=== PATIENT | female | born 1995 | race Two or more races ===

== ENCOUNTER 2025-03-23 13:49 | Emergency (ER) | payer BC ==
[~2025-03-23] VITALS: Ht 165.1 cm; Wt 50.0 kg
[2025-03-23 13:59] VITALS: O2SAT 100
[2025-03-23] MEDS: TETANUS, DIPHTHERIA, PERTUSSIS VAC/PF 0.5ML (>10YR OLD) IM ONE (14:33)
[2025-03-23] MEDS: ACETAMINOPHEN 325MG TABLET PO ONE (14:33)
[2025-03-23 16:47] LABS: HCG SCREEN NEGATIVE
[2025-03-23] MEDS ORDERED: LIDOCAINE HCL/EPINEPHRINE 1%-EPI 1:100,000 20ML VIAL INFIL ONE (17:30)
[2025-03-23 18:10] VITALS: BP 114/72; PULSE 81; RESP 18; TEMP 36.7; O2SAT 100
== END 2025-03-23 18:48 | disposition home or self-care (01) ==
LOC: ER 13:49
DX: S01.81XA Laceration without foreign body of other part of head, initial encounter (principal); E03.9 Hypothyroidism, unspecified; Z98.890 Other specified postprocedural states; Z88.2 Allergy status to sulfonamides; Z88.0 Allergy status to penicillin; W01.0XXA Fall on same level from slipping, tripping and stumbling without subsequent striking against object, initial encounter; Y93.89 Activity, other specified; Y92.89 Other specified places as the place of occurrence of the external cause; Y99.8 Other external cause status
CPT/HCPCS: 99284; 70450; 84703; 12011; J2004